=== PATIENT | male | born 1975 | race Caucasian/White ===

== ENCOUNTER 2025-10-26 10:00 | Outpatient (CLI) | payer MEDICARE, SELFPAY ==
--- NOTE | 2025-10-26 10:20 | NEURO_ITS ---
Impression: # Complains of numbness of hands. ? # Mild Ulnar Neuropathy across the elbow, bilaterally. ? # Subtle evolving Carpal Tunnel Syndrome. ? # Needle/ EMG exam abnormal. ? # Right Triceps suggesting higher involvement. ? # MRI of cervical spine suggested. Nerve Conduction Studies ?Stim Site NR Peak (ms) P-T Amp (?V) Site1 Site2 Delta-P (ms) Dist (cm) Nnamdi (m/s) Left Median Anti Sensory (2-3nd Digit) Wrist ? 3.6 17.8 Wrist 2-3nd Digit 3.6 14.0 39 Wrist ? 3.6 24.3 Wrist 2-3nd Digit 3.6 14.0 39 Right Median Anti Sensory (2-3nd Digit) Wrist ? 3.4 17.0 Wrist 2-3nd Digit 3.4 14.0 41 Wrist ? 3.4 11.5 Wrist 2-3nd Digit 3.4 14.0 41 Left Radial Anti Sensory (Base 1st Digit) Wrist ? 2.0 5.1 Wrist Base 1st Digit 2.0 0.0 Right Radial Anti Sensory (Base 1st Digit) Wrist ? 1.8 13.5 Wrist Base 1st Digit 1.8 0.0 Left Ulnar Anti Sensory (5th Digit) Wrist ? 3.4 13.3 Wrist 5th Digit 3.4 14.0 41 Right Ulnar Anti Sensory (5th Digit) Wrist ? 2.6 21.6 Wrist 5th Digit 2.6 14.0 54 ?Stim Site NR Onset (ms) O-P Amp (mV) Site1 Site2 Delta-0 (ms) Dist (cm) Nnamdi (m/s) Left Median Motor (Abd Poll Brev) Wrist ? 4.3 2.6 Elbow Wrist 5.5 32.0 58 Elbow ? 9.8 2.9 Right Median Motor (Abd Poll Brev) Wrist ? 4.1 2.1 Elbow Wrist 5.8 33.0 57 Elbow ? 9.9 2.3 Left Ulnar Motor (Abd Dig Minimi) Wrist ? 3.0 6.7 A Elbow Wrist 6.5 33.0 51 A Elbow ? 9.5 6.0 B Elbow Wrist 4.6 25.0 54 B Elbow ? 7.6 5.3 Right Ulnar Motor (Abd Dig Minimi) Wrist ? 2.3 6.3 A Elbow Wrist 6.0 33.0 55 A Elbow ? 8.3 4.7 B Elbow Wrist 4.5 25.0 56 B Elbow ? 6.8 4.7 F Wave Studies ?NR F-Lat (ms) L-R F-Lat (ms) Left Median (Mrkrs) (Abd Poll Brev) ? 29.63 3.57 Right Median (Mrkrs) (Abd Poll Brev) ? 26.06 3.57 Left Ulnar (Mrkrs) (Abd Dig Min) ? 32.22 1.12 Right Ulnar (Mrkrs) (Abd Dig Min) ? 31.10 1.12 Electromyography ?Side Muscle Nerve Root Ins Act Fibs Amp Dur Recrt Comment Left 1stDorInt Ulnar C8-T1 Nml Nml Nml Nml Nml Left ABD Dig Min Ulnar C8-T1 Nml Nml Nml Nml Nml Left Abd Poll Brev Median C8-T1 Nml Nml Nml Nml Nml Left Abd Poll Long Radial (Post Int) C7-8 Nml Nml Nml Nml Nml Left Biceps Musculocut C5-6 Nml Nml Nml Nml Nml Left BrachioRad Radial C5-6 Nml Nml Nml Nml Nml Left Deltoid Axillary C5-6 Nml Nml Nml Nml Nml Left Ext Digitorum Radial (Post Int) C7-8 Nml Nml Nml Nml Nml Left Ext Indicis Radial (Post Int) C7-8 Nml Nml Nml Nml Nml Left FlexPolLong Median (Ant Int) C7-8 Nml Nml Nml Nml Nml Left PronatorTeres Median C6-7 Nml Nml Nml Nml Nml Left Triceps Radial C6-7-8 Nml Nml Nml Nml Nml Right 1stDorInt Ulnar C8-T1 Nml Nml Nml Nml Nml Right ABD Dig Min Ulnar C8-T1 Nml Nml Nml Nml Nml Right Abd Poll Brev Median C8-T1 Nml Nml Nml Nml Nml Right Abd Poll Long Radial (Post Int) C7-8 Nml Nml Nml Nml Nml Right Biceps Musculocut C5-6 Nml Nml Nml Nml Nml Right BrachioRad Radial C5-6 Nml Nml Decr >12ms +1 Right Deltoid Axillary C5-6 Nml Nml Decr >12ms +1 Right Ext Digitorum Radial (Post Int) C7-8 Nml Nml Nml Nml Nml Right Ext Indicis Radial (Post Int) C7-8 Nml Nml Nml Nml Nml Right FlexPolLong Median (Ant Int) C7-8 Nml Nml Nml Nml Nml Right PronatorTeres Median C6-7 Nml Nml Nml Nml Nml Right Triceps Radial C6-7-8 Nml Nml Nml Nml Nml
--- OUTSIDE RECORDS SUMMARY | 2025-10-26 11:11 | XMS_ITS | Encounter Summary ---
Author Organization [facility] Healthcare Address [address] [place] [address] Care Team Providers Care Heel Compressor Name Role Phone Mishel Shaw Primary Care Pr ovider Encounter Details Date Type Department Care Team (Latest Contact Info) Description 10/16/2025 Results Follow-Up [facility] Gastroenterology at [address] [place] [phone] Sawyer Kaiser MD [address] [place] [address] [address] [place] [address] Surgical pathology Social History Tobacco Use Types Packs/Day Years Used Date Smoking Tobacco: Former Cigarettes Smokeless Tobacco: Current Comments:Pt quit 3-4 weeks a go; using nicotine transdermal patches Alcohol Use Standard Drinks/Week Comments Yes 6 (1 standard drink = 0.6 oz pur e alcohol) AUDIT-C Answer Date Recorded Q1: How often do you have a drink containing alc ohol? 2-3 times a week 09/29/2025 Q2: How many drinks containi ng alcohol do you have on a typical day when you are drinking? 3 or 4 09/29/2025 Q3: How often do you have si x or more drinks on one occasion? Never 09/29/2025 Personal Safety Answer Date Recorded Have you ever been in or are you currently in a harmful physical or emotional relationship or is someone making you feel afraid or unsafe? 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
--- OUTSIDE RECORDS SUMMARY | 2025-10-26 11:11 | XMS_ITS | Clinical Summary ---
Author Organization [facility] [address] [place] [phone] Care Team Providers Care Shoe Associate Name Role Phone Mishel Shaw Primary Care Pr ovider Allergies No known active allergies Medications omeprazole (PriLOSEC) 40 mg capsule take 1 capsule by oral route every day before a meal 0 0 02/07/20 17 Active ondansetron ODT (ZOFRAN-ODT) 4 mg disintegrating tablet ondansetron 4 mg disintegrating tablet Active amLODIPine (NORVASC) 5 mg tablet amlodipine 5 mg tablet TK 1 T PO BID Active magnesium oxide 400 mg magnesium capsule Take by mouth Active loratadine (CLARITIN REDITABS) 10 mg disintegrating tablet Take 1 tablet (10 mg total) by mouth daily Active losartan (COZAAR) 50 mg tablet Take 1 tablet (50 mg total) by mouth daily Active ALPRAZolam (NIRAVAM) 0.25 mg disintegrating tablet Take 1 tablet (0.25 mg total) by mouth nightly as needed for anxiety Active tadalafiL (CIALIS) 5 mg tablet Take 1 tablet (5 mg total) by mouth daily Active TiZANidine (ZANAFLEX) 4 mg capsule TAKE 1 CAPSULE BY MOUTH EVERY 6 HOURS NEEDED 08/31/20 25 Active sildenafil (VIAGRA) 50 mg tablet take 1 tablet by oral route every day as needed approximately 1 hour before sexual activity 0 0 02/07/20 17 025 Disconti nued(The rapy complete d) propranolol (INDERAL) 40 mg tablet take 1 tablet by oral route 2 times every day 0 0 02/07/20 17 Disconti nued(The rapy complete d) metoclopramide (REGLAN) 10 mg tablet take 1 tablet by oral route 4 times every day 30 minutes before meals and at bedtime 0 0 02/07/20 17 Disconti nued(The rapy complete d) rizatriptan (MAXALT) 10 mg tablet take 1 tablet by oral route once, may repeat at 2 hour intervals; do not exceed 30 mg in 24 hours 0 0 02/07/20 17 Disconti nued(The rapy complete d) lamoTRIgine (LaMICtal) 25 mg tablet 09/12/20 17 Disconti nued(The rapy complete d) HYDROcodone-aceta minophen (NORCO) 7.5-325 mg per tabletIndications :Pain 09/09/20 17 Disconti nued(The rapy complete d) HYDROcodone-aceta minophen (NORCO) 5-325 mg per tabletIndications :Pain Take 1 tablet every 6 hours as needed for pain 60 tablet 11/06/20 17 Disconti nued(The rapy complete d) TRINTELLIX 10 mg tabletIndications :major depressive disorder 11/14/20 17 025 Disconti nued(The rapy complete d) OLANZapine (ZyPREXA) 2.5 mg tablet 11/28/19 18 Disconti nued(The rapy complete d) propranolol LA (INDERAL LA) 60 mg 24 hr capsule 11/14/20 17 Disconti nued(The rapy complete d) lamoTRIgine (LaMICtal) 150 mg tablet 01/07/20 18 Disconti nued(The rapy complete d) OLANZapine (ZyPREXA) 5 mg tablet 12/29/19 18 025 Disconti nued(The rapy complete d) baclofen (LIORESAL) 10 mg tablet TAKE 1 TABLET(10 MG) BY MOUTH THREE TIMES DAILY NEEDED FOR MUSCLE SPASMS 270 tablet 1 03/08/20 19 Disconti nued(The rapy complete d) baclofen (LIORESAL) 10 mg tablet Take 1 tablet (10 mg total) by mouth 3 (three) times a day as needed for muscle spasms 270 tablet 03/08/20 19 Disconti nued(The rapy complete d) testosterone cypionate (DEPO-TESTOTERONE ) 100 mg/mL injection testosterone cypionate 100 mg/mL intramuscular oil Disconti nued(The rapy complete d) tiZANidine (ZANAFLEX) 2 mg tablet tizanidine 2 mg tablet Disconti nued(Dup licate order) testosterone (AndroGeL) 20.25 mg/1.25 gram (1.62 %) gel in metered-dose pump AndroGel 20.25 mg/1.25 gram (1.62 %) transdermal gel pump Disconti nued(The rapy complete d) sertraline (ZOLOFT) 25 mg tablet sertraline 25 mg tablet Disconti nued(The rapy complete d) pregabalin (Lyrica) 75 mg capsule Lyrica 75 mg capsule Disconti nued(The rapy complete d) predniSONE (DELTASONE) 50 mg tablet prednisone 50 mg tablet Disconti nued(The rapy complete d) oxyCODONE-acetami nophen (PERCOCET) 5-325 mg per tablet oxycodone-acetami nophen 5 mg-325 mg tablet Disconti nued(The rapy complete d) buPROPion SR (WELLBUTRIN SR) 150 mg 12 hr tablet as needed Disconti nued(The rapy complete d) busPIRone (BUSPAR) 10 mg tablet buspirone 10 mg tablet TK 1 T PO TID UTD Disconti nued(The rapy complete d) busPIRone (BUSPAR) 7.5 mg tablet buspirone 7.5 mg tablet 11/10/2 025 Disconti nued(The rapy complete d) citalopram (CeleXA) 10 mg tablet citalopram 10 mg tablet Disconti nued(The rapy complete d) guaiFENesin-codei ne (GUAITUSS AC) liquid 100-10 mg/5 mL Virtussin AC 10 mg-100 mg/5 mL oral liquid TK 10 ML PO Q 6 H PRN Disconti nued(The rapy complete d) doxycycline (ADOXA) 100 mg tablet doxycycline monohydrate 100 mg tablet Disconti nued(The rapy complete d) eluxadoline (Viberzi) 100 mg tablet Viberzi 100 mg tablet TK 1 T PO BID Disconti nued(The rapy complete d) ipratropium-albut Drake (DUO-NEB) 0.5-2.5 mg/3 mL nebulizer solution 3 mL Disconti nued(The rapy complete d) albuterol HFA (Ventolin HFA) 90 mcg/actuation inhaler Ventolin HFA 90 mcg/actuation aerosol inhaler Disconti nued(The rapy complete d) doxycycline hyclate 100 mg capsule TK 1 C PO BID WC 08/25/20 20 Disconti nued(The rapy complete d) amoxicillin (AMOXIL) 875 mg tablet amoxicillin 875 mg tablet TK 1 T PO Q 12 H FOR 10 DAYS Disconti nued(The rapy complete d) azithromycin (ZITHROMAX) 250 mg tablet azithromycin 250 mg tablet Disconti nued(The rapy complete d) ketoconazole (NIZORAL) 2 % cream ketoconazole 2 % topical cream JACKIE AA BID Disconti nued(The rapy complete d) varenicline (Chantix) 0.5 mg tablet Chantix 0.5 mg tablet Disconti nued(The rapy complete d) varenicline (Chantix) 1 mg tablet Chantix 1 mg tablet 11/10/2 025 Disconti nued(The rapy complete d) diclofenac-miSOPR OStol (ARTHROTEC 70) 75-200 mg-mcg EC tablet Take 1 tablet by mouth 2 (two) times a day 60 tablet 2 08/29/20 20 025 Disconti nued(The rapy complete d) ondansetron (ZOFRAN) 4 mg tabletIndications :Nausea and vomiting, unspecified vomiting type Take 1 tablet (4 mg) total 30 minutes before starting colonoscopy prep. Use the 2nd tablet as needed for nausea and vomiting. 2 tablet 08/29/20 25 025 Disconti nued(The rapy complete d) scopolamine 1 mg over 3 days patch 3 day APPLY 1 PATCH TOPICALLY EVERY 72 HOURS 025 Disconti nued(The rapy complete d) Active Problems Problem Noted Date Diagnosed Date Screening for colon cancer 08/29/2025 Acute pharyngitis 08/29/2020 Pneumonia 08/29/2020 Rib pain 08/29/2020 Postprocedural state 02/06/2017 Overview (04/18/2017): Postprocedural state finding Postlaminectomy syndrome of lumbar region 2016 Overview (04/18/2017): Lumbar post-laminectomy syndrome Status post lumbar spine operation 02/06/2017 Overview (04/18/2017): History of lumbar fusion Notalgia 10/24/2011 Encounters Date Type Department Care Team Description 10/16/2025 Results Follow-Up [facility] Gastroenterology at [address] [place] [address] Sawyer Kaiser MD Surgical pathology 10/03/2025 8:19 AM ELECTRIC LINEMAN Anesthesia Event [facility] [address] [place] [address] Pancho Clayton MD Suguitan, Karen E., [facility] DIRECTOR 10/03/2025 7:45 AM ELECTRIC LINEMAN - 10/03/2025 8:00 AM ELECTRIC LINEMAN Surgery [facility] [address] [place] [address] Sawyer Kaiser MD COLON REMOVAL SNARE 10/03/2025 6:41 AM ELECTRIC LINEMAN - 10/03/2025 9:45 AM ELECTRIC LINEMAN Hospital Encounter [facility] [address] [place] [address] Sawyer Kaiser MD Screening for colon cancer Discharge Disposition: Discharge to home or self care 08/29/2025 Orders Only [facility] Gastroenterology at [place] [address] [facility] [address] [place] [address] Sawyer Kaiser MD Screening for colon cancer (Primary Dx); Nausea and vomiting, unspecified vomiting type from Last 3 Months Surgical History Surgery Date Site/Laterality Comments SPINAL FUSION 6 back surgeries; lumbar Medical History Medical History Date Comments Hypertension Obesity Sleep apnea GERD (gastroesophageal reflux disease) Family History Medical History Relation Name Comments Cancer Father Diabetes Father No Known Problems Mother Diabetes Sister Relation Name Status Comments Father Mother Sister Social History Tobacco Use Types Packs/Day Years [...] on file 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 Gender Identity Not on file Sexual Orientation Not on file Last Filed Vital Signs Vital Sign Reading Time Taken Comments Blood Pressure 156/98 10/03/2025 9:20 AM ELECTRIC LINEMAN Pulse 62 10/03/2025 9:20 AM ELECTRIC LINEMAN Temperature 36.1 C (96.9 F) 10/03/2025 8:45 AM ELECTRIC LINEMAN Respiratory Rate 17 10/03/2025 9:00 AM ELECTRIC LINEMAN Oxygen Saturation 100% 10/03/2025 9:20 AM ELECTRIC LINEMAN Inhaled Oxygen Concentration - - Weight 113.4 kg (250 lb) 10/03/2025 7:19 AM ELECTRIC LINEMAN Height 182.9 cm (6') 10/03/2025 7:19 AM ELECTRIC LINEMAN Body Mass Index 33.91 10/03/2025 7:19 AM ELECTRIC LINEMAN Plan of Treatment Health Maintenance Due Date Last Done Comments Depression Screening 1975 Hepatitis C Screening 1975 Hepatitis B Screening 1994 Regular Well Visit/Exam 18-64 1994 Covid-19 Vaccine ( - 2024-2 6 season) 2025 03/29/2022, 08/25/2021, 08/04/2021 Influenza Vaccine (#1) 2025 , 12/14/2013 DTaP/Tdap/Td Vaccine (3 - Td or Tdap) 03/28/2032 03/28/2022, 03/18/2011 Colon Cancer Screening-Colonoscopy 10/03/2035 10/03/2025 Pneumococcal vaccine <65 Aged Out No longer eligible based on patient's age to complete this topic Procedures Procedure Name Priority Date/Time Associated Diagnosis Comments SURGICAL PATHOLOGY Routine 10/03/2025 8: 30 AM ELECTRIC LINEMAN Screening for colon cancer COLON REMOVAL SNARE 10/03/2025 8 :19 AM ELECTRIC LINEMAN Screening for colon cancer COLONOSCOPY 10/03/2025 8:18 AM ELECTRIC LINEMAN POC BLOOD GAS AND CHEMISTRIES, VENOUS Routine 10/03/2025 7:51 AM ELECTRIC LINEMAN from Last 3 Months Results * Surgical pathology (10/03/2025 8:30 AM ELECTRIC LINEMAN) Tissue (Polyp(s), colon/colorectal, esophageal, gastric) 10/03/2025 8:30 AM ELECTRIC LINEMAN Comment:Cold snare Tissue specimen (specimen) (Polyp(s), colon/colorectal, esophageal, gastric) 10/03/2025 8:34 AM ELECTRIC LINEMAN Comment:Cold snare Narrative PATHOLOGY [facility] - 10/04/2025 12:37 PM ELECTRIC LINEMAN [facility] Department of Pathology [address] [place] [id number] Note to Patients: This report may contain a detailed description of human tissue sent by a health care provider to the laboratory for pathologic evaluation. The content of this report is essential for diagnosis and may provide important critical findings. This information may be unfamiliar to patients to review without a medical professional present. It is advised that the patient review this report in the presence of a health care provider who can answer questions and explain the details. Final Report Patient Name: LINDY BURGESS : 1975 (Age: 50) Gender: M Address: [address] [place] [address] [place] [address] Hospital #: [id number] Service: Gastro Location: Patient Type: [facility] Taken: 10/03/2025 Received: 10/03/2025 Accessioned: 10/03/2025 Reported: 10/04/2025 Physician(s): MD Mishel Dennis, P.ADominik Diagnosis: A. Colon, cecum, biopsy - Tubular adenoma B. Colon, sigmoid, biopsy - Fragments of tubular adenomas Govind Barrios M.D. Report Electronically Reviewed and Signed Out By Govind Barrios M.D. 10/04/2025 12:37:27 Specimen(s) Received: A: Cecal polyp B: Sigmoid colon polyp x 3 Microscopic Description: Unless gross-only is specified, the final diagnosis for each specimen is based on a microscopic examination of each tissue sample. Clinical History: The patient is a 50-year-old man presenting colon cancer screening. Operative procedure: Colon removal snare. Gross Description Received in two formalin jars labeled with the patient's identifiers. A. Labeled cecal polyp is a single irregular fragment of membranous soft gaming tissue (1.0 x 0.4 x 0.1 cm). Placed between sponges. Labeled A1. Jar 0. B. Labeled sigmoid colon polyp x3 are multiple irregular fragments of soft gaming- pink tissue (1.0 x 0.6 x 0.2 cm in aggregate). Labeled B1. Jar 0. emgmhb/10/03/2025 11:04 Chinyere Farias, MS, PA (A Microscopic slide review and interpretation for this case was performed at [facility], Department of Surgical Pathology, [address] [facility] [id number], [place] [address] CLIA # [id number] us Sawyer Kaiser MD LAB PATHOLOGY ORDERABLES Final Result PATHOLOGY [facility] * Colonoscopy (10/03/2025 8:18 AM ELECTRIC LINEMAN) Anatomical Region Laterality Modality Other Narrative Procedure Note Sawyer Kaiser MD - 10/03/2025 8:18 AM CST [facility] GI ENDOSCOPY Patient Name: Lindy Burgess Procedure Date: 10/03/2025 8:18 AM Date of : 1975 Admit Type: Outpatient Age: 50 Gender: Male Attending MD: Sawyer Kaiser M.D., Room: [facility] ENDOSCOPY ROOM 04 Note Status: Finalized Procedure: Colonoscopy Indications: High risk colon cancer surveillance: Personalhistory of colonic polyps Referring MD: Providers: Sawyer Kaiser M.D. Medicines: See the Anesthesia note for documentation of the administered medications Complications: No immediate complications. Estimated Blood Loss: Estimated blood loss was minimal. Procedure: Pre-Anesthesia Assessment: - Prior to the procedure, a History and Physicalwas performed, and patient medications and allergieswere reviewed. The risks and benefits of the procedureand the sedation options and risks were discussed withthe patient. All questions were answered and informed consent was obtained. Patient identification and proposed procedure were verified. After reviewingthe risks and benefits, the patient was deemed in satisfactory condition to undergo the procedure.The anesthesia plan was to use monitored anesthesiacare (MAC). Immediately prior to administration of medications, the patient was re-assessed foradequacy to receive sedatives. The heart rate, respiratory rate, oxygen saturations, blood pressure, adequacyof pulmonary ventilation, and response to care were monitored throughout the procedure. The physical status of the patient was re-assessed after the procedure. The benefits, risks and alternatives of theprocedure and sedation were discussed and informed consentwas obtained. All questions were answered. Please referto the signed informed consent document in the medical record. The scope was passed under direct vision.The [id number] colonoscope was introduced through theanus and advanced to the cecum, identified byappendiceal orifice and ileocecal valve. The colonoscopy was performed without difficulty. The patient tolerated the procedure well. The quality of the bowel preparation was good. Scope insertion time was 2 minutes. Scope withdrawal time was 10 minutes. Prep was administered in a split dose. Findings: The perianal and digital rectal examinations were normal. A 5 mm polyp was found in the cecum. The polyp was sessile. The polyp was removed with a cold snare. Resection and retrieval werecomplete. Three sessile polyps were found in the sigmoid colon. The polyps were5 - 8 mm in size. These polyps were removed with a cold snare.Resection and retrieval were complete. Internal hemorrhoids were found. The hemorrhoids were small. Impression: - One 5 mm polyp in the cecum, removed with a cold snare. Resected and retrieved. - Three 5-8 mm polyps in the sigmoid colon, removed with a cold snare. Resected and retrieved. - Internal hemorrhoids. Recommendation: - Await pathology results. - Resume previous diet today. - Discharge patient to home. - Patient has a contact number available for emergencies. The signs and symptoms of potential delayed complications were discussed with thepatient. Return to normal activities tomorrow. Written discharge instructions were provided to thepatient. - I would be happy to see you in my GI clinic ifyou have further questions or concerns or if symptoms progress Sawyer Kaiser M.D. 10/03/2025 8:44:56 AM Number of Addenda: 0 Note Initiated On: 10/03/2025 8:18 AM Recognized by the [employer] for promoting quality in endoscopy Sawyer Kaiser MD ENDOSCOPY PROCEDURES [place] l Result * POC Blood Gas and Chemistries, Venous - (10/03/2025 7:51 AM ELECTRIC LINEMAN) pH,belkis POC 7.38 7.32 - 7.43 pCO2, belkis POC 42 40 - 50 mmHg [facility] pO2,belkis POC 44 mmHg [facility] Comment: Interpretive Data No reference range established. Current interpretive data was last revised 2020. HCO3, belkis (Calc) POC 25 20 - 30 mmol/L [facility] Base excess, belkis POC 0 mmol/L [facility] Comment: Interpretive Data No reference range established. Current interpretive data was last revised 2020. Hemoglobin, belkis POC 16.3 13.0 - 17.5 g/dL [facility] Hematocrit, belkis POC 48.0 38.9 - 50.3 % [facility] Sodium, belkis POC 140 135 - 145 mmol/L [facility] Potassium, belkis POC 4.1 3.3 - 4.9 mmol/L [facility] Comment: Interpretive Data This method is not able to assess for hemolysis, which may falsely increase potassium concentrations. If further testing is needed to evaluate this result, consider in-laboratory plasma potassium. Current Interpretive Data was last revised on 2022. Glucose, belkis POC 100 70 - 199 mg/dL [facility] Ionized Calcium, belkis POC 4.80 4.50 - 5.10 mg/dL [facility] Blood 10/03/2025 7:51 AM ELECTRIC LINEMAN 10/03/2025 7:51 AM ELECTRIC LINEMAN us Sawyer Kaiser MD LAB POCT ORDERABLES - DEV ICE Final Result [facility] [address] [place] [address] from Last 3 Months Insurance [facility] [employer] [facility] [employer] Care Teams Shoe Associate Relationship Specialty Start Date End Date Mishel Shaw PA PCP - General Physician Cannoneer 09/08/17
== END 2025-10-26 10:01 | disposition home or self-care (01) ==
LOC: ANHNEURO 10:03
PROVIDERS: PCP Physician Assistant; Visit Provider Physician Assistant
DX: M79.601 Pain in right arm (principal)
CPT/HCPCS: 95886; 95911